=== PATIENT | male | born 1980 | race African-American/Black ===

== ENCOUNTER 2016-04-07 18:01 | Emergency (ER) | payer SELFPAY ==
[~2016-04-07] VITALS: Ht 182.9 cm; Wt 81.6 kg
[~2016-04-07 18:01] MED LIST: AMOX500T PO; HYDR-971 PO; LISI1TAB5 PO; NAPR375T3 PO; SULF1TAB24 PO
[2016-04-07] MEDS ORDERED: IPRATRPIUM/ALBUTEROL 0.5/2.5MG 3 ML NEBU. NEB ONE (19:30)
[2016-04-07 20:00] VITALS: BP 136/74
[2016-04-07] MEDS ORDERED: PROAIR HFA8.5 GM INH (20:30)
[2016-04-07] MEDS ORDERED: PRED20TA PO (20:30)
--- NOTE | 2016-04-07 20:30 | PHYS DOC ---
Past Medical History Past Medical History: GERD, Hypertension Past Surgical History: No Surgical History Smoking: Cigar Alcohol Use: Occasionally Drug Use: Marijuana Adult General Chief Complaint Chief Complaint: COUGH HPI HPI Patient is a 35 year old male who presents with productive cough and shortness of breath for 4 days. He reports subjective fever with nasal congestion, sore throat, and bilateral ear pain. He has a headache in the frontal region. He has pain in the chest with his cough only. He has been prescribed blood pressure medication in the past but is out of the medicine and has not seen a primary care provider for a while. He sometimes sees a PCP at [facility]. Review of Systems Review of Systems Constitutional: Reports subjective fever. Eyes: Denies change in visual acuity, redness, or eye pain. [] HENT: Reports sore throat, nasal congestion, and bilateral ear pain. Respiratory: Reports productive cough and shortness of breath. Cardiovascular: Denies palpitations or edema. Reports chest pain with coughing. GI: Denies abdominal pain, nausea, vomiting, bloody stools or diarrhea. [] : Denies dysuria, hematuria or urinary frequency. [] Musculoskeletal: Denies back pain or joint pain. [] Integument: Denies rash or skin lesions. [] Neurologic: Denies focal weakness or sensory changes. Reports frontal headache. Endocrine: Denies polyuria or polydipsia. [] Psych: Denies anxiety or depression. [] All systems reviewed and negative unless otherwise stated in the HPI. Current Medications Current Medications Current Medications Medications (Trade) Dose Ordered Sig/Rosario Start Time Stop Time Status Last Admin Dose Admin Albuterol/ Ipratropium (Duoneb) 3 ml 1X ONCE 04/07/16 19:30 04/07/16 19:31 DC 04/07/16 19:47 3 ML Allergies Allergies Allergies Coded Allergies Type Severity Reaction Last Updated Verified No Known Drug Allergies 07/21/15 No Physical Exam Physical Exam Constitutional: Well developed, well nourished, no acute distress, non-toxic appearance. [] HENT: Normocephalic, atraumatic, bilateral external ears normal, oropharynx moist, no oral exudates, nose normal. Bilateral TMs without erythema or bulging. There is no posterior pharyngeal erythema or tonsillar edema. Bilateral nasal turbinates are swollen and erythematous with purulent drainage. Eyes: PERRLA, EOMI, conjunctiva normal, no discharge. [] Neck: Normal range of motion, no tenderness, supple, no stridor. [] Cardiovascular: Heart rate regular rhythm, no murmur [] Lungs & Thorax: There are moderate wheezes in bilateral lung bases without rales or rhonchi. The patient is not in respiratory distress. Skin: Warm, dry, no erythema, no rash. [] Neurologic: Alert and oriented X 3, normal motor function, normal sensory function, no focal deficits noted. [] Psychologic: Affect normal, judgement normal, mood normal. [] Current Patient Data Vital Signs Vital Signs Date Time Temp Pulse Resp B/P Pulse Ox O2 Delivery O2 Flow Rate FiO2 04/07/16 20:00 63 18 136/74 97 Room Air 04/07/16 19:04 98.3 98.3 EKG EKG EKG at 1935. Heart rate 60 bpm. Sinus rhythm without acute ischemic changes or STEMI, as interpreted by Dr. Duenas. Radiology/Procedures Radiology/Procedures PA and lateral chest x-ray reviewed and interpreted by myself with Dr. Duenas. There are no focal infiltrates or other cardiopulmonary abnormality seen. Course & Med Decision Making Course & Med Decision Making Pertinent Labs and Imaging studies reviewed. (See chart for details) Patient presents with productive cough shortness of breath for 4 days. On exam, he has wheezes in bilateral lung bases without respiratory distress. EKG shows a sinus rhythm without acute ischemic changes or STEMI. Chest x-ray does not show any focal infiltrates to suggest pneumonia. Patient was given a nebulizer treatment while in the emergency department. He reported improved breathing after the treatment. Reexamination reveals lungs clear to auscultation bilaterally after the nebulizer treatment. Patient is discharged home with prescription for prednisone and albuterol inhaler. Return precautions were discussed. He verbalizes understanding and agrees with plan. Dragon Disclaimer Dragon Disclaimer This electronic medical record was generated, in whole or in part, using a voice recognition dictation system. Departure Departure Impression: Primary Impression: Bronchitis Disposition: 01 HOME, SELF-CARE Condition: IMPROVED Referrals: NO PCP (PCP) Patient Instructions: Acute Bronchitis, [id number] Additional Instructions: Your chest x-ray does not show any signs of pneumonia. Your EKG was normal. Your blood pressure was not significantly elevated today. Please complete all the prescribed steroids, even if you are feeling better. Please use the prescribed inhaler as needed for cough or shortness of breath. Do not use more often than directed. Please follow-up with a primary care provider regarding your blood pressure. Return to the emergency department if you have any new or concerning symptoms, including chest pain or shortness of breath. Scripts Prednisone 20 Mg [id number] Mg PO DAILY 5 Days Prov:HUGO MADRID 04/07/16 Albuterol Sulfate (Proair Hfa Inhaler)8.5 Gm [id number].[id number] Puff INH Q4HRS PRN SHORTNESS OF BREATH #1 INHALER Prov:HUGO MADRID 04/07/16 HUGO MADRID Apr 07, 2016 20:30
--- NOTE | 2016-04-08 06:35 | EKG ---
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
--- NOTE | 2016-04-08 08:37 | RAD ---
2 view CXR: Clinical indications: Flulike symptoms for 3 days with cough and shortness of air and chest pain. Comparison: May 22, 2015. Findings: No acute lung infiltrate or pleural effusion or pulmonary edema or lung mass or pneumothorax is seen. The heart size, pulmonary vasculature, mediastinum and both donna are unremarkable. The osseous structures appear intact. Impression: No acute radiographic abnormality is seen.
== END 2016-04-07 20:44 | disposition home or self-care (01) ==
LOC: ER 18:01
DX: J40 Bronchitis, not specified as acute or chronic (principal); H92.03 Otalgia, bilateral; I10 Essential (primary) hypertension; F17.210 Nicotine dependence, cigarettes, uncomplicated; F12.10 Cannabis abuse, uncomplicated
CPT/HCPCS: 71020; 93005; 94250; 94640; 99284; J7620

== ENCOUNTER 2017-05-24 07:43 | Emergency (ER) | payer SELFPAY ==
[2017-05-24] MEDS ORDERED: 0.9 % SODIUM CHLORIDE 10 ML DISP.SYRIN. IV (08:00)
[2017-05-24] MEDS: ASPIRIN 325 MG TABLET PO (08:00)
[2017-05-24 08:03] LABS: ADD MAN DIFF? NO
[2017-05-24 08:06] LABS: BASO # 0.1 x10^3/uL (0.0-0.2); BASO % 1 % (0-3); EOS # 0.3 x10^3/uL (0.0-0.7); EOS % 4 % (0-3); HEMOGLOBIN 16.3 g/dL (13.0-17.5); LYMPH # 2.4 x10^3/uL (1.0-4.8); LYMPH % 39 % (24-48); MEAN CORPUSCULAR HEMOGLOBIN 31 pg (25-35); MEAN CORPUSCULAR HGB CONC 34 g/dL (31-37); MEAN CORPUSCULAR VOLUME 92 fL (79-100); MONO # 0.4 x10^3/uL (0.0-1.1); MONO % 7 % (0-9); NEUT % 49 % (31-73); PLATELET COUNT 234 x10^3/uL (140-400); RED BLOOD COUNT 5.22 x10^6/uL (4.30-5.70); RED CELL DISTRIBUTION WIDTH 14.7 % (11.5-14.5); WHITE BLOOD COUNT 6.2 x10^3/uL (4.0-11.0)
[2017-05-24] MEDS: LIDO:MAALOX:DONNATAL 1:1:1 15 ML SINGLE DOSE SWSW (08:08)
[2017-05-24] MEDS: IV NORMAL SALINE 1000ML BAG 1,000 ML IV (08:10)
[2017-05-24] MEDS: ASPIRIN CHEWABLE 81 MG TABLET. PO (08:22)
[2017-05-24 08:29] LABS: BILIRUBIN,URINE NEGATIVE (NEG); CLARITY,URINE CLEAR; COLOR,URINE YELLOW; GLUCOSE,URINE NEGATIVE (NEG); NITRITE,URINE NEGATIVE (NEG); PH,URINE 6.5; PROTEIN,URINE NEGATIVE (NEG-TRACE); UROBILINOGEN,URINE 0.2 mg/dL (0.2 mg/dL)
[2017-05-24 08:37] LABS: AMPHETAMINE/METHAMPHETAMINE NEG (NEG); BACTERIA,URINE 0 /HPF (0-FEW); BARBITURATES NEG (NEG); BENZODIAZEPINES NEG (NEG); CANNABINOIDS NEG (NEG); COCAINE NEG (NEG); ETHANOL, URINE NEG (NEG); METHADONE NEG (NEG); OPIATES NEG (NEG); PHENCYCLIDINE POS (NEG); RBC,URINE 0 /HPF (0-2); WBC,URINE 0 /HPF (0-4)
[2017-05-24 09:05] LABS: ALBUMIN 3.2 g/dL (3.4-5.0); ALK PHOS 80 U/L (46-116); ALT (SGPT) 31 U/L (16-63); ANION GAP 7 (6-14); AST (SGOT) 27 U/L (15-37); BLOOD UREA NITROGEN 9 mg/dL (8-26); CALCIUM 8.7 mg/dL (8.5-10.1); CARBON DIOXIDE 29 mmol/L (21-32); CHLORIDE 105 mmol/L (98-107); CREATININE 1.1 mg/dL (0.7-1.3); DIRECT BILIRUBIN < 0.1 mg/dL (0.0-0.2); GFR 90.6; GLUCOSE 116 mg/dL (70-99); LIPASE 83 U/L (73-393); MAGNESIUM 1.9 mg/dL (1.8-2.4); POTASSIUM 4.3 mmol/L (3.5-5.1); SODIUM 141 mmol/L (136-145); TOTAL BILIRUBIN 0.2 mg/dL (0.2-1.0); TOTAL PROTEIN 6.5 g/dL (6.4-8.2)
[2017-05-24 09:08] LABS: TROPONINI < 0.017 ng/mL (0.000-0.055)
[2017-05-24 09:13] LABS: NT-PRO BNP 59 pg/mL (0-124)
[2017-05-24 09:13] LABS: CKMB INDEX 0.6 % (0-4); CKMB MASS 4.4 ng/mL (0.0-3.6); CREATINE KINASE 682 U/L (39-308)
== END 2017-05-24 10:59 | disposition home or self-care (01) ==
LOC: ER 07:43
DX: K21.9 Gastro-esophageal reflux disease without esophagitis (principal); I10 Essential (primary) hypertension; F12.10 Cannabis abuse, uncomplicated
CPT/HCPCS: 36415; 71046; 80048; 80076; 80307; 81001; 82553; 83690; 83735; 83880; 84443; 84484; 85025; 93005; 96360; 99285-25; J7030

== ENCOUNTER 2020-03-03 12:26 | Emergency (ER) | payer SELFPAY ==
[~2020-03-03] VITALS: Ht 182.9 cm; Wt 90.0 kg
[~2020-03-03 12:26] MED LIST changes: +ALBU2.5V8 INH; +HYDR-3164 PO; -HYDR-971 PO; +LISI1TAB37 PO; -LISI1TAB5 PO; +NAPR-695 PO; -NAPR375T3 PO; +PANT20TA2 PO; +PRED20TA PO
[2020-03-03 13:45] VITALS: BP 170/108
== END 2020-03-03 15:02 | disposition left against medical advice (07) ==
LOC: ER 12:26
DX: M79.641 Pain in right hand (principal); Z53.21 Procedure and treatment not carried out due to patient leaving prior to being seen by health care provider

== ENCOUNTER 2021-01-21 01:22 | Emergency (ER) | payer SELFPAY ==
[~2021-01-21] VITALS: Ht 182.9 cm; Wt 95.5 kg
--- NOTE | 2021-01-21 02:44 | PHYS DOC ---
Past Medical History Past Medical History: GERD, Hypertension Past Surgical History: No Surgical History Smoking Status: Current Every Day Smoker Alcohol Use: None Drug Use: Marijuana General Adult EDM: Chief Complaint: GROIN PAIN HPI: HPI: Patient is a 40 year old male who present to ER for evaluation of left lower abdominal pain, left groin pain for 3 days. Patient also have nausea vomiting. Patient denies any fever, no chest pain, no cough, no trouble breathing. Patient said the pain is worse when he IS walking. Review of Systems: Review of Systems: Constitutional: Denies fever or chills. [] Eyes: Denies change in visual acuity. [] HENT: Denies nasal congestion or sore throat. [] Respiratory: Denies cough or shortness of breath. [] Cardiovascular: Denies chest pain or edema. [] GI: Positive for left lower abdominal pain, left rib pain, nausea vomiting, no diarrhea : Denies dysuria. [] Musculoskeletal: Denies back pain or joint pain. [] Integument: Denies rash. [] Neurologic: Denies headache, focal weakness or sensory changes. [] Endocrine: Denies polyuria or polydipsia. [] Lymphatic: Denies swollen glands. [] Psychiatric: Denies depression or anxiety. [] Heart Score: C/O Chest Pain: N/A Risk Factors: Risk Factors: DM, Current or recent (<one month) smoker, HTN, HLP, family history of CAD, obesity. Risk Scores: Score 0 - 3: 2.5% MACE over next 6 weeks - Discharge Home Score 4 - 6: 20.3% MACE over next 6 weeks - Admit for Clinical Observation Score 7 - 10: 72.7% MACE over next 6 weeks - Early Invasive Strategies Allergies: Allergies: Allergies Coded Allergies Type Severity Reaction Last Updated Verified No Known Drug Allergies 07/21/15 No Physical Exam: PE: Constitutional: Well developed, well nourished, no acute distress, non-toxic appearance. [] HENT: Normocephalic, atraumatic, bilateral external ears normal, oropharynx moist, no oral exudates, nose normal. [] Eyes: PERRLA, EOMI, conjunctiva normal, no discharge. [] Neck: Normal range of motion, no tenderness, supple, no stridor. [] Cardiovascular:Heart rate regular rhythm, no murmur [] Lungs & Thorax: Bilateral breath sounds clear to auscultation [] Abdomen: Bowel sounds normal, soft, LLQ TENDERNESS TO PALPATION, LEFT INGUINAL TENDERNESS TO PALPATION , no masses, no pulsatile masses. [] Skin: Warm, dry, no erythema, no rash. [] Back: No tenderness, no CVA tenderness. [] Extremities: No tenderness, no cyanosis, no clubbing, ROM intact, no edema. [] Neurologic: Alert and oriented X 3, normal motor function, normal sensory function, no focal deficits noted. [] Psychologic: Affect normal, judgement normal, mood normal. [] Current Patient Data: Labs: Laboratory Tests Test 01/21/21 02:59 White Blood Count 5.0 x10^3/uL Red Blood Count 4.73 x10^6/uL Hemoglobin 14.2 g/dL Hematocrit 42.0 % Mean Corpuscular Volume 89 fL Mean Corpuscular Hemoglobin 30 pg Mean Corpuscular Hemoglobin Concent 34 g/dL Red Cell Distribution Width 14.1 % Platelet Count 277 x10^3/uL Neutrophils (%) (Auto) 48 % Lymphocytes (%) (Auto) 39 % Monocytes (%) (Auto) 10 % Eosinophils (%) (Auto) 2 % Basophils (%) (Auto) 1 % Neutrophils # (Auto) 2.4 x10^3/uL Lymphocytes # (Auto) 2.0 x10^3/uL Monocytes # (Auto) 0.5 x10^3/uL Eosinophils # (Auto) 0.1 x10^3/uL Basophils # (Auto) 0.1 x10^3/uL Sodium Level 140 mmol/L Potassium Level 3.9 mmol/L Chloride Level 103 mmol/L Carbon Dioxide Level 32 mmol/L Anion Gap 5 Blood Urea Nitrogen 11 mg/dL Creatinine 1.0 mg/dL Estimated GFR (Cockcroft-Gault) 99.6 BUN/Creatinine Ratio 11 Glucose Level 125 mg/dL Calcium Level 8.5 mg/dL Total Bilirubin 0.1 mg/dL Aspartate Amino Transf (AST/SGOT) 17 U/L Alanine Aminotransferase (ALT/SGPT) 31 U/L Alkaline Phosphatase 78 U/L Total Protein 6.9 g/dL Albumin 3.4 g/dL Albumin/Globulin Ratio 1.0 Lipase 39 U/L Current Medications Medications (Trade) Dose Ordered Sig/Rosario Route PRN Reason Start Time Stop Time Status Last Admin Dose Admin Iohexol (Omnipaque 300 Mg/ml) 75 ml 1X ONCE IV 01/21/21 03:45 01/21/21 03:47 DC Info (CONTRAST GIVEN -- Rx MONITORING) 1 each PRN DAILY PRN MC SEE COMMENTS 01/21/21 04:00 01/23/21 03:59 Vital Signs: Vital Signs Date Time Temp Pulse Resp B/P (MAP) Pulse Ox O2 Delivery O2 Flow Rate FiO2 01/21/21 01:55 98.4 87 18 179/101 (127) 98 Room Air 98.4 EKG: EKG: [] Radiology/Procedures: Radiology/Procedures: [][facility] [address] [place] [address] IMAGING REPORT Signed PATIENT: DENISE DE LOS SANTOS ACCOUNT: [id number] : 1980 LOCATION: ER AGE: 40 SEX: M EXAM STATUS: REG ER ORD. PHYSICIAN: MATT GONG DO REASON: LT LOWER ABDOMINAL PAIN, LT GROIN PAIN;OMNI 300, 75ML PROCEDURE: CT ABD PELV W/ IV CONTRST ONLY PQRS Compliance Statement: One or more of the following individualized dose reduction techniques were utilized for this examination: 1. Automated exposure control 2. Adjustment of the mA and/or kV according to patient size 3. Use of iterative reconstruction technique CT abdomen/pelvis with contrast 01/21/2021 3:26 AM INDICATION: Left lower abdominal pain and left inguinal pain COMPARISON: None available TECHNIQUE: Multiple axial CT images of the abdomen and pelvis were obtained after the intravenous administration of 75 mL Omnipaque 300. Coronal and sagittal reformats are provided. FINDINGS: Lung bases are clear. Heart size is within normal limits. Liver, spleen, adrenal glands, pancreas and gallbladder are normal in appearance. The abdominal aorta is normal in course and caliber. There are no pathologically enlarged lymph nodes in the abdomen and pelvis. There is no abdominal free fluid. There is no free intraperitoneal air. The kidneys enhance symmetrically. There is no suspicious renal mass. There is no hydronephrosis. There are no suspected calculi within the kidneys, ureters or urinary bladder. Urinary bladder is within normal limits given degree of distention. Prostate and seminal vesicles are normal in appearance. Small and large bowel are normal in caliber. There is no evidence for bowel obstruction. There are no pericolonic inflammatory changes. A normal, nondilated appendix is visualized without adjacent inflammatory changes. No suspicious osseous abnormality is identified. There is asymmetric inflammation involving the left inguinal canal. A definite inguinal hernias not visualized by CT. This could be better characterized with ultrasound for physical examination. IMPRESSION: There is mild asymmetric inflammation involving the left inguinal canal. There may be a small left inguinal hernia. Correlate with any signs and symptoms of incarceration. Ultrasound of the left inguinal region could be of benefit for further characterization. Electronically signed by: Muna Morales MD (01/21/2021 3:54 AM) [facility] DI[facility] and SIGNED BY: MUNA MORALES MD DATE: 01/21/21 [id number] [facility] [address] [place], [place] [id number] IMAGING REPORT Signed PATIENT: DENISE DE LOS SANTOS ACCOUNT: [id number] : 1980 LOCATION: ER AGE: 40 SEX: M EXAM STATUS: REG ER ORD. PHYSICIAN: MATT GONG DO REASON: left inguinal pain and swelling PROCEDURE: EXT NON VASC LEFT US EXT NON VASC LEFT 01/21/2021 4:27 AM INDICATION: Left inguinal pain and swelling COMPARISON: None available. TECHNIQUE: Sonographic evaluation of the left inguinal region was performed. FINDINGS/ IMPRESSION: Left inguinal lymph nodes are present measuring up to 1.4 x 0.9 x 0.3 cm. Lymph nodes demonstrate normal fatty hilum. No abscess is identified. The inguinal canal is not well profiled on this examination. However, on CT there is subtle eccentric inflammation involving the left inguinal canal. Consideration could be given for epididymitis if there is not a significant hernia on examination. Electronically signed by: Muna Morales MD (01/21/2021 5:38 AM) [facility] DICTATED and SIGNED BY: MUNA MORALES MD DATE: 01/21/21 [id number] Course & Med Decision Making: Course & Med Decision Making Pertinent Labs and Imaging studies reviewed. (See chart for details) Patient is a 40-year-old male who present to ER due to left inguinal pain, patient said he is sexually active, patient said he had some penile discharge about months ago, patient says sometimes he has pain in his scrotum area on the left side. The area on the left inguinal area is consistent with swollen lymph node, I suspect that patient has epididymitis. Patient was given Zithromax and Rocephin in ER, patient be discharged home with doxycycline. [place] Disclaimer: [place] Disclaimer: This electronic medical record was generated, in whole or in part, using a voice recognition dictation system. Departure Departure Impression: Primary Impression: Left inguinal pain Additional Impression: Epididymitis Disposition: 01 HOME / SELF CARE / HOMELESS Condition: STABLE Referrals: NO PCP (PCP) Patient Instructions: Epididymitis Additional Instructions: Please call UROLOGY FOR FOLLOW UP IN 2 DAYS. [facility] / [place], [place] [address] [place] [address] [place], [place] [id number] [place] [address] [place] [address] [facility], [address] [place] [address] Scripts Ibuprofen (IBUPROFEN) 800 Mg Tablet 800 MG PO PRN Q6HRS PRN for INFLAMMATION, #30 TAB Prov: MATT GONG DO 01/21/21 Doxycycline Hyclate (DOXYCYCLINE HYCLATE) 100 Mg Capsule 1 CAP PO BID for 14 Days, #28 CAP Prov: MATT GONG DO 01/21/21 MATT GONG DO Jan 21, 2021 02:44
[2021-01-21 03:05] LABS: BASO # 0.1 x10^3/uL (0.0-0.2); BASO % 1 % (0-3); EOS # 0.1 x10^3/uL (0.0-0.7); EOS % 2 % (0-3); HEMOGLOBIN 14.2 g/dL (13.0-17.5); LYMPH % 39 % (24-48); MEAN CORPUSCULAR HEMOGLOBIN 30 pg (25-35); MEAN CORPUSCULAR HGB CONC 34 g/dL (31-37); MEAN CORPUSCULAR VOLUME 89 fL (79-100); MONO # 0.5 x10^3/uL (0.0-1.1); MONO % 10 % (0-9); NEUT # 2.4 x10^3/uL (1.8-7.7); NEUT % 48 % (31-73); PLATELET COUNT 277 x10^3/uL (140-400); RED BLOOD COUNT 4.73 x10^6/uL (4.30-5.70); RED CELL DISTRIBUTION WIDTH 14.1 % (11.5-14.5)
[2021-01-21 03:13] LABS: CALCIUM 8.5 mg/dL (8.5-10.1); GFR 99.6; POTASSIUM 3.9 mmol/L (3.5-5.1)
[2021-01-21 03:19] LABS: ALBUMIN 3.4 g/dL (3.4-5.0); TOTAL BILIRUBIN 0.1 mg/dL (0.2-1.0); TOTAL PROTEIN 6.9 g/dL (6.4-8.2)
[2021-01-21] MEDS ORDERED: IOHEXOL 300 MG/ML 100ML VIAL. IV ONE (03:45)
--- NOTE | 2021-01-21 03:57 | RAD ---
PQRS Compliance Statement: One or more of the following individualized dose reduction techniques were utilized for this examinat ion: 1. Automated exposure control 2. Adjustment of the mA and/or kV according to patient size 3. Use of iterative reconstruction technique CT abdomen/pelvis with contrast 01/21/2021 3:26 AM INDICATION: Left lower abdominal pain and left inguinal pain COMPARISON: None available TECHNIQUE: Multiple axial CT images of the abdomen and pelvis were obtained after the intravenous adm inistration of 75 mL Omnipaque 300. Coronal and sagittal reformats are provided. FINDINGS: Lung bases are clear. Heart size is within normal limits. Liver, spleen, adrenal glands, pancreas and gallbladder are normal in appearance. The abdominal aorta is normal in course and caliber. There are no pathologically enlarged lymph nodes in the abdomen and pelvis. There is no abdominal free fluid. There is no free intraperitoneal air. The kidneys enhance symmetrically. There is no suspicious renal mass. There is no hydronephrosis. There are no suspected calculi within the kidneys, ureters or urin lydia bladder. Urinary bladder is within normal limits given degree of distention. Prostate and seminal vesicles are normal in appearance. Small and large bowel are normal in caliber. There is no evidence for bowel obstruction. There are no pericolonic inflammatory changes. A normal, nondilated appendix is visualized without adjacent inflammatory changes. No suspicious osseous abnormality is identified. There is asymmetric inflammation involving the left inguinal canal. A definite inguinal hernias not visualized by CT. This could be better characterized with ultrasound for physical examination. IMPRESSION: There is mild asymmetric inflammation involving the left inguinal canal. There may be a small left in guinal hernia. Correlate with any signs and symptoms of incarceration. Ultrasound of the left inguina l region could be of benefit for further characterization. Electronically signed by: Domenica Guerrero MD (01/21/2021 3:54 AM) [facility]
[2021-01-21] MEDS ORDERED: CONTRAST GIVEN. MC PRN (04:00)
[2021-01-21] MEDS ORDERED: ONDANSETRON PF 4 MG/2 ML VIAL. IVP ONE (05:15)
[2021-01-21] MEDS ORDERED: MORPHINE SULFATE 4 MG/ML INJ. IVP ONE (05:15)
--- NOTE | 2021-01-21 05:40 | RAD ---
US EXT NON VASC LEFT 01/21/2021 4:27 AM INDICATION: Left inguinal pain and swelling COMPARISON: None available. TECHNIQUE: Sonographic evaluation of the left inguinal region was performed. FINDINGS/ IMPRESSION: Left inguinal lymph nodes are present measuring up to 1.4 x 0.9 x 0.3 cm. Lymph nodes demonstrate nor mal fatty hilum. No abscess is identified. The inguinal canal is not well profiled on this examination. However, on CT there is subtle eccentric inflammation involving the left inguinal canal. Consideration could be given for epididymitis if the re is not a significant hernia on examination. Electronically signed by: Domenica Guerrero MD (01/21/2021 5:38 AM) [facility]
[2021-01-21] MEDS ORDERED: AZITHROMYCIN 250 MG TABLET. PO ONE (05:45)
[2021-01-21] MEDS ORDERED: KETOROLAC 30 MG/ML VIAL. IVP ONE (05:45)
[2021-01-21] MEDS ORDERED: cefTRIAXone IV Push 1 GM VIAL. IVP ONE (05:45)
[2021-01-21] MEDS ORDERED: IBUP-1060 PO (06:11)
[2021-01-21] MEDS ORDERED: DOXY100C3 PO (06:11)
[2021-01-21 06:33] VITALS: BP 180/112
== END 2021-01-21 06:49 | disposition home or self-care (01) ==
LOC: ER 01:22
DX: N45.1 Epididymitis (principal); R10.32 Left lower quadrant pain; K21.9 Gastro-esophageal reflux disease without esophagitis; I10 Essential (primary) hypertension; F17.200 Nicotine dependence, unspecified, uncomplicated
CPT/HCPCS: 36415; 74177; 76881; 80053; 83690; 85025; 96374; 96375; 99285; J0696; J1885; J2270; J2405; Q9967